=== PATIENT | male | born 1950 | race Caucasian/White ===

== ENCOUNTER 2018-06-08 05:15 | Emergency (ER) | payer OTHER ==
[~2018-06-08] VITALS: Ht 180.3 cm; Wt 81.7 kg
[2018-06-08] MEDS ORDERED: KEFLEX500 M1 PO (06:18)
[2018-06-08] MEDS ORDERED: NORCO 5-325 TA1 EACH PO (06:52)
[2018-06-08 06:54] VITALS: BP 131/64
== END 2018-06-08 06:55 | disposition home or self-care (01) ==
LOC: ER 05:15
DX: R04.0 Epistaxis (principal)